=== PATIENT | male | born 1995 | race Caucasian/White ===

== ENCOUNTER 2019-01-02 13:16 | Emergency (ER) | payer OTHER ==
[~2019-01-02] VITALS: Ht 177.8 cm; Wt 68.2 kg
[2019-01-02 13:20] VITALS: Ht 177.8 cm; Wt 68.2 kg
[2019-01-02 13:43] LABS: APPEARANCE CLEAR (CLEAR); COLOR YELLOW (YELLOW)
[2019-01-02 13:44] LABS: BILIRUBIN NEGATIVE (NEGATIVE); GLUCOSE NEGATIVE (NEGATIVE); KETONE NEGATIVE (NEGATIVE); NITRITE NEGATIVE (NEGATIVE); PROTEIN NEGATIVE (NEGATIVE); UROBILINOGEN NORMAL (NORMAL)
[2019-01-02 13:49] LABS: UDS - AMPHET NEGATIVE QUAL (NEGATIVE); UDS - BARB NEGATIVE QUAL (NEGATIVE); UDS - BENZO NEGATIVE QUAL (NEGATIVE); UDS - COCAINE NEGATIVE QUAL (NEGATIVE); UDS - OPIATE NEGATIVE QUAL (NEGATIVE); UDS - PCP NEGATIVE QUAL (NEGATIVE); UDS - THC NEGATIVE QUAL (NEGATIVE)
[2019-01-02 14:05] LABS: BASOPHILS 0.5 % (0-2); EOSINOPHILS 0.6 % (0-7); HEMATOCRIT 42.9 % (42.0-54.0); HEMOGLOBIN 15.5 g/dL (13.5-17.5); IMMATURE GRANULOCYTES 0.3 % (0-5); LYMPHOCYTES 19.9 % (15-50); MCH 30.8 pg (26.0-34.0); MCHC 36.1 g/dL (31.0-37.0); MCV 85.1 fL (80.0-100.0); MEAN PLATELET VOLUME 10.4 fL (7.4-10.4); MONOCYTES 6.9 % (2-11); NEUTROPHILS 71.8 % (40-80); PLATELET COUNT 177 10x3/uL (130-400); RBC 5.04 10x6/uL (4.20-6.10); RDW 12.4 % (11.5-14.5); WBC 7.8 10x3/uL (4.8-10.8)
--- NOTE | 2019-01-02 14:21 | NUR ---
According to the suicide assessment screen score, the patient will require a 1:1 observation.
[2019-01-02 14:25] LABS: ALBUMIN 4.1 g/dL (3.4-5.0); ALKALINE PHOSPHATASE 82 U/L (46-116); ALT (SGPT) 20 U/L (10-68); BILIRUBIN - TOTAL 0.31 mg/dL (0.2-1.3); CALC OSMOLALITY 281 mosm/kg (275-300); CALCIUM 9.5 mg/dL (8.5-10.1); CARBON DIOXIDE 29.3 mmol/L (21.0-32.0); CHLORIDE - SERUM 105 mmol/L (98-107); GLUCOSE 92 mg/dL (74-106); POTASSIUM - SERUM 4.3 mmol/L (3.5-5.1); PROTEIN - SERUM 7.4 g/dL (6.4-8.2); SODIUM 142 mmol/L (136-145); UREA NITROGEN 11 mg/dL (7-18); eGFR NON AFRICAN AMERICAN > 90 mL/min (90-120)
[2019-01-02 14:27] LABS: MAGNESIUM - SERUM 1.8 mg/dL (1.8-2.4)
[2019-01-02 17:21] VITALS: BP 140/88
== END 2019-01-02 17:24 ==
LOC: D.ER 13:16
PROVIDERS: Family Medicine
DX: F29 Unspecified psychosis not due to a substance or known physiological condition (principal); T14.91XA Suicide attempt, initial encounter; T43.592A Poisoning by other antipsychotics and neuroleptics, intentional self-harm, initial encounter; Y92.019 Unspecified place in single-family (private) house as the place of occurrence of the external cause

== ENCOUNTER 2019-05-13 13:44 | Emergency (ER) | payer OTHER ==
[~2019-05-13] VITALS: Ht 177.8 cm; Wt 68.2 kg
[2019-05-13 13:56] VITALS: Ht 177.8 cm; Wt 68.2 kg
[2019-05-13 14:38] LABS: BASOPHILS 0.2 % (0-2); EOSINOPHILS 1.3 % (0-7); HEMATOCRIT 42.8 % (42.0-54.0); HEMOGLOBIN 14.9 g/dL (13.5-17.5); IMMATURE GRANULOCYTES 0.1 % (0-5); LYMPHOCYTES 19.5 % (15-50); MCH 30.6 pg (26.0-34.0); MCHC 34.8 g/dL (31.0-37.0); MCV 87.9 fL (80.0-100.0); MEAN PLATELET VOLUME 9.7 fL (7.4-10.4); NEUTROPHILS 70.9 % (40-80); PLATELET COUNT 177 10x3/uL (130-400); RBC 4.87 10x6/uL (4.20-6.10); WBC 8.2 10x3/uL (4.8-10.8)
[2019-05-13 14:57] LABS: APPEARANCE CLEAR (CLEAR); BILIRUBIN NEGATIVE (NEGATIVE); COLOR YELLOW (YELLOW); GLUCOSE NEGATIVE (NEGATIVE); KETONE NEGATIVE (NEGATIVE); NITRITE NEGATIVE (NEGATIVE); PROTEIN NEGATIVE (NEGATIVE); SPECIFIC GRAVITY 1.025 (1.005-1.020); UROBILINOGEN NORMAL (NORMAL)
[2019-05-13 14:58] LABS: BACTERIA FEW /hpf (NEGATIVE); WHITE CELLS - URINE OCC /hpf (NEGATIVE)
[2019-05-13 15:00] LABS: UDS - AMPHET POSITIVE QUAL (NEGATIVE); UDS - BARB NEGATIVE QUAL (NEGATIVE); UDS - BENZO NEGATIVE QUAL (NEGATIVE); UDS - COCAINE NEGATIVE QUAL (NEGATIVE); UDS - OPIATE NEGATIVE QUAL (NEGATIVE); UDS - PCP NEGATIVE QUAL (NEGATIVE); UDS - THC NEGATIVE QUAL (NEGATIVE)
[2019-05-13 15:07] LABS: CALC OSMOLALITY 280 mosm/kg (275-300); CALCIUM 9.3 mg/dL (8.5-10.1); CARBON DIOXIDE 29.6 mmol/L (21.0-32.0); CHLORIDE - SERUM 103 mmol/L (98-107); GLUCOSE 103 mg/dL (74-106); POTASSIUM - SERUM 3.9 mmol/L (3.5-5.1); SODIUM 140 mmol/L (136-145); UREA NITROGEN 17 mg/dL (7-18); eGFR NON AFRICAN AMERICAN > 90 mL/min (90-120)
[2019-05-13 15:10] LABS: ALBUMIN 3.8 g/dL (3.4-5.0); ALKALINE PHOSPHATASE 92 U/L (46-116); ALT (SGPT) 22 U/L (10-68); MAGNESIUM - SERUM 2.4 mg/dL (1.8-2.4); PROTEIN - SERUM 6.8 g/dL (6.4-8.2)
--- NOTE | 2019-05-13 16:15 | NUR ---
PATIENT ADAMENTLY DENIES SUICIDAL THOUGHTS TO THIS NURSE AT THIS TIME. PATIENT ALSO SCORED NEGATIVE ON HIS INITIAL SUICIDE SCREEN. PATIENT DELUSIONAL AND QUITE PARANOID IN THOUGHT PROCESS, BELIEVING THAT HIS MOTHER IS TO BLAME FOR HIS BEING HERE AT THIS FACILITY. PATIENT AGAIN STATED THAT HE WAS NOT SUICIDAL OR HOMICIDAL.
--- NOTE | 2019-05-13 17:30 | NUR ---
PHYSICIAN ASKED THAT THIS NURSE VISIT WITH PATIENT'S MOTHER. MOTHER AND PATIENT'S YOUNGER BROTHER PRESENTED AN AUDIO RECORDING, THAT ACCORDING TO THE CELLULAR DEVICE, WAS RECORDED EARLIER TODAY. PATIENT WAS HEARD MAKING DELUSIONAL STATEMENTS. FOR EXAMPLE, PATIENT STATED THAT THERE WAS AN ELECTRONIC DEVICE IMPLANTED BEHIND HIS AND HIS FAMILY MEMBER'S EAR. THIS DEVICE WAS USED TO DOWNLOAD THEIR THOUGHTS TO A WEBSITE KNOWN [facility]. AND, THE ONLY WAY TO GET RID OF THE DEVICE WAS TO . PATIENT RANTED AND RAVED THROUGHOUT THE AUDIO RECORDING. MOTHER AND YOUNGER SON VERY FEARFUL FOR THEIR SAFETY THE PATIENT REPORTEDLY RAN ABOUT THE HOUSE THIS MORNING SMASHING OBJECTS WITH A BASEBALL BAT RESULTING IN THE PD BEING CALLED.
[2019-05-13 22:00] VITALS: BP 122/74
== END 2019-05-13 22:00 | disposition home or self-care (01) ==
LOC: D.ER 13:44
PROVIDERS: Family Medicine
DX: F15.10 Other stimulant abuse, uncomplicated (principal)